=== PATIENT | male | born 1945 | race Caucasian/White ===

== ENCOUNTER 2017-10-10 13:18 | Outpatient (CLI) | payer MEDICARE, OTHER ==
--- NOTE | 2017-10-10 15:41 | RAD ---
FOUR VIEWS LUMBAR SPINE: Date: 10-10-17 History: Lumbar radiculopathy, back pain. FINDINGS: Frontal radiograph lumbar spine demonstrates mild lateral osteophyte formation within the lower lumba r spine. There is facet hypertrophy at L4-5 and L5-S1. There is anterolisthesis on neutral lateral im aging at L4-5 measuring 7 mm. There is disc space narrowing with anterior osteophyte formation at L5- S1 as well as at the L1-2, L2-3, and L3-4 levels. With flexion, the anterolisthesis of L4 on L5 incre ases to 1 cm and with extension the anterolisthesis of L4 on L5 is 7-8 mm. There is atherosclerotic c alcification of the abdominal aorta. No acute osseous abnormality is seen. IMPRESSION: Multilevel lower lumbar spine degenerative change. There is anterolisthesis at L4-5, most prominent w ith flexion. POS: ASHLYN
--- NOTE | 2017-10-10 15:53 | MRI ---
LUMBAR SPINE MRI WITHOUT CONTRAST: Date: 10-10-17 History: Lumbar radiculopathy. Low back pain with bilateral hamstring muscle tingling. Technique: Multiplanar, multisequence MR imaging of the lumbar spine is provided without contrast med ia. FINDINGS: Sagittal STIR imaging demonstrates edematous degenerative change centered at bilateral facet joints a t L4-5. There is fluid within these facet joints as well. The STIR imaging demonstrates no focal area of vertebral body edema. On the basis of five lumbar vertebral bodies there is mild anterolisthesis of L4 on L5 measuring in the 7 mm range. T11-12: Disc space narrowing, anterior osteophyte formation and mild disc desiccation. Mild facet hyp ertrophy. Mild bilateral neural foraminal stenosis. No central canal stenosis. T12-L1: Mild bilateral facet hypertrophy. Intervertebral disc height and signal intensity within norm al limits. Anterior osteophyte formation noted. No significant central canal or neural foraminal sten osis. L1-2: There is a central disc protrusion with mild inferior migration of 7 mm and minimal superior mi gration of 3 mm. This effaces the ventral thecal sac and leads to a mild degree of central canal sten osis. There is mild facet hypertrophy bilaterally with no significant neural foraminal stenosis. L2-3: Moderate bilateral facet hypertrophy, left greater than right. There is disc space narrowing, d isc desiccation and mild disc bulge with mild central canal stenosis and mild bilateral foraminal linh nosis, left greater than right. L3-4: There is disc space narrowing, disc desiccation and bilateral facet hypertrophy/hypertrophy of ligamentum flavum, left greater than right. There is disc bulge as well. Findings lead to a moderate degree of central canal stenosis. There is moderate bilateral neural foraminal stenosis, left greater than right. L4-5: Disc space narrowing, disc desiccation, and mild disc bulge. Severe bilateral facet hypertrophy and hypertrophy of ligamentum flavum noted with severe central canal stenosis and severe bilateral n eural foraminal stenosis, left greater than right. L5-S1: Bilateral facet hypertrophy. Disc space narrowing and disc desiccation with mild central canal stenosis noted. Lateral osteophyte formation noted with mild bilateral neural foraminal stenosis. Incompletely imaged large T2 hyperintense lesions emanate from the left kidney which suggests incompl etely imaged cysts. These three such lesions noted measuring up to at least 4.7 cm. Recommend further assessment via ultrasound. IMPRESSION: 1. There is prominent multilevel degenerative change noted throughout the lumbar spine, most severe a t the L4-5 level where there is severe central canal stenosis and severe bilateral neural foraminal s tenosis. Findings also include a central disc protrusion at L1-2 as described above. 2. T2 hyperintense incompletely visualized left renal lesions for which follow up renal ultrasound is advised. POS: ASHLYN
== END 2017-10-10 13:19 | disposition home or self-care (01) ==
LOC: TBSIIMAG 13:18
PROVIDERS: ATTEND Surgery
DX: M47.26 Other spondylosis with radiculopathy, lumbar region (principal); M43.16 Spondylolisthesis, lumbar region; M48.061 Spinal stenosis, lumbar region without neurogenic claudication; M99.83 Other biomechanical lesions of lumbar region; N28.9 Disorder of kidney and ureter, unspecified
CPT/HCPCS: 72110; 72148

== ENCOUNTER 2017-11-14 10:34 | Outpatient (CLI) | payer MEDICARE, OTHER ==
[2017-11-14 12:15] LABS: Mean Corpuscular HGB CONC 34.7 g/dL (32.0-36.0); Mean Corpuscular Hemoglobin 36.9 pg (27.0-31.0); Mean Platelet Volume 6.8 fL (7.4-10.4); Platelet Count 206 thou/uL (130-400); RBC Distribution Width 13.1 % (11.5-14.5); Red Blood Cell (RBC) Count 3.53 mill/uL (4.70-6.10); White Blood Cell (WBC) Count 6.8 thou/uL (4.8-10.8)
[2017-11-14 12:20] LABS: INR-International Normal Ratio 1.1; PTT 32.3 SEC (22.9-36.1); Prothrombin Time 14.2 SEC (12.0-14.7)
[2017-11-14 12:31] LABS: Anion Gap 13 mmol/L (10-20); BUN (Urea Nitrogen) 14 mg/dL (8.4-25.7); Calc. Creatinine Clearance 0 mL/min (70-130); Carbon Dioxide 24 mmol/L (23-31); Chloride 107 mmol/L (98-107); Estimated GFR-MDRD 79; Glucose 96 mg/dL (80-115); Potassium 4.6 mmol/L (3.5-5.1); Sodium 139 mmol/L (136-145)
--- NOTE | 2017-11-15 07:29 | EKG ---
Test Reason : Blood Pressure : / mmHG Vent. Rate : 056 BPM Atrial Rate : 056 BPM P-R Int : 298 ms QRS Dur : 094 ms QT Int : 410 ms P-R-T Axes : 044 001 087 degrees QTc Int : 395 ms Poor data quality, interpretation may be adversely affected Sinus bradycardia with sinus arrhythmia with 1st degree A-V block Nonspecific ST-T changes Abnormal ECG No previous ECGs available Confirmed by DR. Alberto PRADO ([id number]) on 11/15/2017 7:29:02 AM Referred By: GAURAV Confirmed By:DR. Alberto PRADO
== END 2017-11-14 10:35 | disposition home or self-care (01) ==
LOC: LABBT 10:34
PROVIDERS: ATTEND Surgery
DX: Z01.818 Encounter for other preprocedural examination (principal); M54.16 Radiculopathy, lumbar region; M48.061 Spinal stenosis, lumbar region without neurogenic claudication
CPT/HCPCS: 80048; 85027; 85610; 85730; 93005; 93010

== ENCOUNTER 2017-11-20 07:41 | Day surgery (SDC) | payer MEDICARE, OTHER ==
[2017-11-20] MEDS ORDERED: Clindamycin/D5W 900 mg/50 ml Premix Bag ONE (08:26)
[2017-11-20] MEDS ORDERED: Levofloxacin 500 mg/D5W 100 ml Premix Bag ONE (08:26)
[2017-11-20] MEDS ORDERED: Fentanyl 100 MCG/2 ML VIAL ONE ×2 (09:16→13:32)
[2017-11-20] MEDS ORDERED: Sodium Chloride 0.9% 10 ML ONE (09:32)
[2017-11-20] MEDS ORDERED: Bacitracin Zinc Ointment 30 gm TUBE ONE (09:32)
[2017-11-20] MEDS ORDERED: Thrombin 5000 UNITS/5 ML VIAL ONE (10:27)
[2017-11-20] MEDS ORDERED: Ondansetron HCl/PF 4 MG/2 ML Vial ONE ×2 (12:45→13:53)
[2017-11-20] MEDS ORDERED: Acetaminophen 325 MG TAB PO PRN (13:44)
[2017-11-20] MEDS ORDERED: HYDROcodone/Acetaminophen 7.5/325 mg Tablet PO PRN (13:44)
[2017-11-20] MEDS ORDERED: Bisacodyl 10 MG SUPP PR PRN (13:44)
[2017-11-20] MEDS ORDERED: traMADol HCl 50 MG TAB PO PRN (13:44)
[2017-11-20] MEDS ORDERED: tiZANidine HCl 4 MG TAB PO PRN (13:44)
[2017-11-20] MEDS ORDERED: Fleet Enema 133 ML BOT PR PRN (13:44)
[2017-11-20] MEDS ORDERED: Milk Of Magnesia 30 ML UDCUP PO PRN (13:44)
[2017-11-20] MEDS ORDERED: Mag-Al 1200 mg/1200 mg/30 ML UDCUP PO PRN (13:44)
[2017-11-20] MEDS ORDERED: Promethazine HCl 25 MG/ML VIAL IM PRN ×2 (13:44→13:46)
[2017-11-20] MEDS ORDERED: Morphine Sulfate 2 MG/ML SYRINGE SLOW IVP PRN (13:46)
[2017-11-20] MEDS ORDERED: Promethazine HCl 25 MG/ML VIAL SLOW IVP PRN (13:46)
[2017-11-20] MEDS ORDERED: Ondansetron HCl/PF 4 MG/2 ML Vial IVP PRN (13:46)
[2017-11-20] MEDS ORDERED: Dexamethasone 20 MG/5 ML VIAL ONE (13:53)
[2017-11-20] MEDS ORDERED: PHENYLEPHRINE-NS 100 MCG/ML 10 ML SYRINGE ONE (13:53)
[2017-11-20] MEDS ORDERED: PROPOFOL 200 MG/20 ML VIAL ONE (13:53)
[2017-11-20] MEDS ORDERED: Glycopyrrolate 0.2 MG/ML 5 ML SYRINGE ONE (13:53)
[2017-11-20] MEDS ORDERED: Lidocaine 1% PF 5 ML VIAL ONE (13:53)
[2017-11-20] MEDS ORDERED: ePHEDrine/0.9% NaCl/PF SYRINGE 50 mg/10 ml ONE (13:53)
[2017-11-20] MEDS ORDERED: Clindamycin/D5W 900 MG in Premix Bag 1 BAG IVPB SCH (16:00)
[2017-11-20 16:07] VITALS: BMI 31.1
[2017-11-20] MEDS ORDERED: Prevnar 13-Val Conj/PF 0.5 ML SYRINGE IM ONE (16:30)
[2017-11-20] MEDS: Sodium Chloride 0.9% 1,000 ML IV SCH (17:14)
[2017-11-20] MEDS: Acetaminophen/Codeine 30-300mg Tablet PO PRN (18:51)
[2017-11-20] MEDS: Clindamycin/D5W 900 MG in Premix Bag 1 BAG IVPB SCH (20:05)
[2017-11-20] MEDS ORDERED: Allopurinol 300 MG TAB PO SCH (21:00)
[2017-11-20] MEDS ORDERED: Rosuvastatin 10 MG TAB PO SCH (21:00)
[2017-11-20] MEDS: Flecainide 50 MG TAB PO SCH (22:07)
[2017-11-21] MEDS: Sodium Chloride 0.9% 1,000 ML IV SCH (01:09)
[2017-11-21] MEDS: Clindamycin/D5W 900 MG in Premix Bag 1 BAG IVPB SCH (03:13)
[2017-11-21 08:32] VITALS: BP 163/69; TEMP 97.4
[2017-11-21] MEDS ORDERED: Lisinopril 20 MG TAB PO SCH (09:00)
[2017-11-21] MEDS ORDERED: Tamsulosin HCl 0.4 MG CAP PO SCH (09:00)
[2017-11-21] MEDS ORDERED: Digoxin 0.25 MG TAB PO SCH (09:00)
[2017-11-21] MEDS ORDERED: Non-Formulary Item 1 EACH (Lisinopril [Lisinopril] 1 TAB) PO SCH (09:00)
[2017-11-21] MEDS: Acetaminophen/Codeine 30-300mg Tablet PO PRN (09:54)
[2017-11-21] MEDS: Flecainide 50 MG TAB PO SCH (10:19)
--- NOTE | 2017-11-21 13:08 | OP ---
DATE OF PROCEDURE: 11/20/2017 PREPROCEDURE DIAGNOSIS: Lumbar stenosis, low back and leg pain. POSTPROCEDURE DIAGNOSIS: Lumbar stenosis, low back and leg pain. PROCEDURE: L3-L4, L4-L5 laminectomy, partial facetectomy, foraminotomies. DESCRIPTION OF PROCEDURE: After informed consent was obtained from the patient, the patient brought to OR 12. Proper patient pause identification was carried out. He was placed under excellent endotr acheal anesthesia and positioned prone on the OR table. All appropriate points were padded. We iden tified the L3 through L5 segments and linear irineo was made. This region was sterilely cleansed, prep ared, and draped. Proper patient pause and identification was carried out. The wound was then opene d with a combination of sharp, monopolar and blunt dissection, and the L3, L4, L5 segments were expos ed. Localization film confirmed our area of interest. We then performed L3-L4, L4-L5 laminectomies, partial facetectomies and foraminotomies. There was no spinal fluid leak. Hemostasis was maximized throughout. The wound was then closed in anatomic layers following sprinkle vancomycin powder. The patient then emerged from anesthesia.
--- NOTE | 2017-11-21 16:56 | DIS ---
DATE OF ADMISSION: 11/20/2017 DATE OF DISCHARGE: 11/21/2017 Marcel Canales PA-C dictating for Dr. Maurice Ramos. DISCHARGE DIAGNOSES: 1. Low back pain with bilateral lower extremity pain. 2. Lumbar spinal stenosis. HOSPITAL COURSE: Mr. Bhakta was admitted on 11/20/2017 to undergo L3-L5 laminectomies for spinal stenosis. The patient's surgery was without complication. [facility] He states since he woke up from surgery, he has nothing in the way of bilateral lower extremity pain. He has minimal pain at his incision site. He has currently met criteria for discharge. He h as good strength in the bilateral lower extremities with intact sensation to light touch. I did see him walk and he has a non-antalgic gait at this time. He is absolutely thrilled with his outcome pos toperatively. Appropriate prescriptions were given to the patient, patient education and outpatient followups will have been scheduled. Ample opportunity was given to the patient and his to discu ss her questions and concerns and they are thrilled with his outcome postoperatively. He understands to call the office with anything additional in the meantime.
== END 2017-11-21 11:13 | disposition home or self-care (01) ==
LOC: SDC 07:41 → SURG A 14:46 → SDC 11-21 11:13
PROVIDERS: ATTEND Surgery
PROC: 01NB0ZZ Release Lumbar Nerve, Open Approach (ICD-10-PCS; principal; 2017-11-20)
DX: M48.061 Spinal stenosis, lumbar region without neurogenic claudication (principal); E78.5 Hyperlipidemia, unspecified; I48.91 Unspecified atrial fibrillation; M10.9 Gout, unspecified; N40.0 Benign prostatic hyperplasia without lower urinary tract symptoms; Z87.891 Personal history of nicotine dependence; Z79.899 Other long term (current) drug therapy; Z88.0 Allergy status to penicillin
CPT/HCPCS: 63047; 63048 ×2; 76001; 90670; G0009; 90471; A4216; J1100; J1956; J2001; J2405; J2704; J3010; J3370; J3490